=== PATIENT | male | born 1935 | race Caucasian/White ===

== ENCOUNTER 2016-10-10 19:33 | Inpatient (IN) | payer OTHER, MEDICARE ==
[~2016-10-10] VITALS: Ht 182.8 cm; Wt 94.4 kg
[~2016-10-10 19:33] MED LIST: ACCUNEB 0.0.63 MG/3 INH; ACCUNEB 0.1.25 MG/1 INH; ACYCLOVIR800 MG PO; ALBUTEROL; ALBUTEROL0.09 MG/A2 IH; ASPIRIN81 MG PO; AUGMENTIN 875875 MG PO; AVAPRO150 MG PO; AVELOX400 MG PO; B12,B-12,B 12500 MC1 PO; BACTRIM DS 8001 TA1 PO; BACTROBAN21 NS; BENICAR20 MG PO; BROMDAY 1.7 ML1.7 ML OP; BUMETANIDE2 MG PO; CEFUROXIME AXE250 MG PO; CIPRO500 MG PO; DOXYCYCLINE MO100 MG PO; DOXYCYCLINE100 M3 PO; DOXYCYCLINE100 MG PO; DULE1ARO1 INH; ELIQUIS5 M1 PO; FAMOTIDINE40 MG PO; FLONASE 0.05% 121 EA NAS; HYDROCODONE BIT1 T11 PO; K-DUR 1010 MEQ PO; LASIX20 MG PO; LEVAQUIN500 M1 PO; LEVAQUIN750 M1 PO; LEVOFLOXACIN500 MG PO; METOPROLOL SUCC25 M2 PO; METOPROLOL50 MG PO; NORVASC10 MG PO; PERCOCET 325 MG1 TA2 PO; PLAVIX75 MG PO; PRED FORTE 10 M10 ML OP; PREDNISONE10 MG PO; PROAIR HFA8.5 GM INH; ROBITUSSIN AC 110 ML PO; SINGULAIR10 MG PO; SPIRIVA18 MCG IH; SYMBICORT1 AE1 IH; SYMBICORT1 AER IH; VICODIN 5-3001 EACH PO; VITAMIN B12 PO; XARE20MG PO; ZITHROMAX Z PA250 MG PO; ZITHROMAX250 MG PO; ZYMAXID; [UNRECOGNIZED DRUG - OTHER] PO
[2016-10-10 19:39] VITALS: BP 125/88
[2016-10-10] MEDS ORDERED: ACETAMINOPHEN-O1 TAB PO (19:40)
[2016-10-10] MEDS ORDERED: DOXYCYCLINE100 M3 PO (19:40)
[2016-10-10 20:12] LABS: BASO % 0.1 % (0.0-1.0); EOS # 0.1 10*3/uL (0.0-0.4); EOS % 0.9 % (1.0-4.0); HEMATOCRIT 46.3 % (42.0-52.0); HEMOGLOBIN 15.7 g/dl (14.0-18.0); IG # 0.1 10*3/uL (0.0-0.1); LYMPH # 1.9 10*3/uL (1.3-4.4); LYMPH % 18.2 % (27.0-41.0); MEAN CELL VOLUME 87.7 fl (80.0-94.0); MEAN CORPUSCULAR HGB 29.7 pg (27.0-31.0); MEAN CORPUSCULAR HGB CONC 33.9 g/dl (33.0-37.0); MEAN PLATELET VOLUME 9.6 fl (9.6-12.3); MONO % 9.8 % (3.0-9.0); NEUT # 7.4 10*3/uL (2.3-7.9); NEUT % 69.7 % (47.0-73.0); PLATELET COUNT AUTOMATED 248 10*3/uL (130-400); RED BLOOD COUNT 5.28 10*6/uL (4.50-5.90); RED CELL DISTRI WIDTH 13.6 % (0-14.5); WHITE BLOOD COUNT 10.6 10*3/uL (4.8-10.8)
[2016-10-10 20:30] LABS: ALKALINE PHOSPHATASE 58 U/L (45-117); BILIRUBIN, TOTAL 0.5 mg/dl (0.2-1.0); BUN 18 mg/dl (7-24); CARBON DIOXIDE 27 mmol/L (21-32); CHLORIDE 102 mmol/L (98-107); EST GLOM FILT AFRICAN AMERICAN > 60 ml/min; GLUCOSE 68 mg/dL (65-99); MAGNESIUM 2.2 mg/dL (1.5-2.1); POTASSIUM 4.2 mmol/L (3.5-5.1); SGOT/AST 10 IU/L (3-35); SGPT/ALT 14 U/L (12-78); SODIUM 138 mmol/L (136-145); TOTAL PROTEIN 6.8 gm/dL (6.4-8.2)
[2016-10-10 20:36] LABS: TROPONIN I < 0.015 ng/ml (<0.045)
[2016-10-10 21:11] VITALS: BP 118/64
[2016-10-10 21:40] VITALS: BP 172/89
[2016-10-10 22:08] LABS: LA>2 REFLEX 2 HR DRAW NOW
[2016-10-10 22:28] LABS: LA>2 RFLX FOLLOW UP AT 2 HRS 2.5 mmol/L (0.4-2.0)
[2016-10-11] VITALS: BP 132/71
[2016-10-11 00:19] LABS: LA>2 REFLEX 4 HR DRAW NOW
[2016-10-11 03:55] LABS: LA>2 REFLEX 2 HR DRAW NOW
[2016-10-11 04:04] LABS: IG # 0.1 10*3/uL (0.0-0.1); LYMPH # 0.8 10*3/uL (1.3-4.4); MEAN CELL VOLUME 86.7 fl (80.0-94.0); MEAN CORPUSCULAR HGB 29.6 pg (27.0-31.0); MEAN CORPUSCULAR HGB CONC 34.1 g/dl (33.0-37.0); MEAN PLATELET VOLUME 9.1 fl (9.6-12.3); MONO # 0.1 10*3/uL (0.1-1.0); MONO % 1.2 % (3.0-9.0); NEUT # 6.6 10*3/uL (2.3-7.9); PLATELET COUNT AUTOMATED 215 10*3/uL (130-400); RED BLOOD COUNT 4.73 10*6/uL (4.50-5.90); RED CELL DISTRI WIDTH 13.3 % (0-14.5); WHITE BLOOD COUNT 7.5 10*3/uL (4.8-10.8)
[2016-10-11 04:11] LABS: LA>2 RFLX FOLLOW UP AT 2 HRS 2.2 mmol/L (0.4-2.0)
[2016-10-11 04:17] LABS: BUN 15 mg/dl (7-24); CARBON DIOXIDE 25 mmol/L (21-32); CHLORIDE 105 mmol/L (98-107); EST GLOM FILT AFRICAN AMERICAN > 60 ml/min; GLUCOSE 147 mg/dL (65-99); MAGNESIUM 2.2 mg/dL (1.5-2.1); POTASSIUM 4.2 mmol/L (3.5-5.1); SODIUM 140 mmol/L (136-145)
[2016-10-11 04:21] LABS: CHOLESTEROL 102 mg/dL (<200); FREE T4 1.51 ng/dl (0.76-1.46); HDL CHOLESTEROL 54 mg/dl (40-60); LDL CHOLESTEROL 42 mg/dL (9-159); PHOSPHOROUS 2.2 mg/dL (2.5-4.9); TRIGLYCERIDES 32 mg/dl (<150); VLDL CHOLESTEROL 6 mg/dL (6-40)
[2016-10-11 04:26] LABS: HEMOGLOBIN A1c 6.3 % (4.8-5.6)
[2016-10-11 04:27] LABS: THYROID STIM HORMONE (HS) 0.363 uIU/ml (0.358-4.75)
[2016-10-11 06:02] LABS: LA>2 REFLEX 4 HR DRAW NOW
[2016-10-11 07:36] LABS: VITAMIN D, 25-HYDROXY 28.5 ng/mL (30-100)
[2016-10-11 07:37] LABS: FOLIC ACID 7.37 ng/mL (>5.38)
[2016-10-11 08:00] VITALS: BP 160/82
[2016-10-11 10:49] LABS: LA>2 REFLEX 2 HR DRAW NOW
[2016-10-11 11:05] LABS: LA>2 RFLX FOLLOW UP AT 2 HRS 2.9 mmol/L (0.4-2.0)
[2016-10-11 11:56] VITALS: BP 133/58
[2016-10-11 12:57] LABS: LA>2 REFLEX 4 HR DRAW NOW
[2016-10-11 16:00] VITALS: BP 156/88
[2016-10-11 17:55] LABS: LA>2 REFLEX 2 HR DRAW NOW
[2016-10-11 18:17] LABS: LA>2 RFLX FOLLOW UP AT 2 HRS 2.5 mmol/L (0.4-2.0)
[2016-10-11 20:00] VITALS: BP 140/70
[2016-10-11 20:04] LABS: LA>2 REFLEX 4 HR DRAW NOW
[2016-10-11 23:47] LABS: LA>2 REFLEX 2 HR DRAW NOW
[2016-10-12] VITALS: BP 137/79
[2016-10-12 00:19] LABS: LA>2 RFLX FOLLOW UP AT 2 HRS 2.7 mmol/L (0.4-2.0)
[2016-10-12 02:02] LABS: LA>2 REFLEX 4 HR DRAW NOW
[2016-10-12 06:47] LABS: BASO % 0.1 % (0.0-1.0); HEMATOCRIT 40.3 % (42.0-52.0); HEMOGLOBIN 13.5 g/dl (14.0-18.0); IG # 0.2 10*3/uL (0.0-0.1); LYMPH % 7.3 % (27.0-41.0); MEAN CELL VOLUME 88.6 fl (80.0-94.0); MEAN CORPUSCULAR HGB 29.7 pg (27.0-31.0); MEAN CORPUSCULAR HGB CONC 33.5 g/dl (33.0-37.0); MEAN PLATELET VOLUME 9.2 fl (9.6-12.3); MONO # 0.3 10*3/uL (0.1-1.0); MONO % 2.2 % (3.0-9.0); NEUT # 12.2 10*3/uL (2.3-7.9); NEUT % 89.2 % (47.0-73.0); PLATELET COUNT AUTOMATED 264 10*3/uL (130-400); RED BLOOD COUNT 4.55 10*6/uL (4.50-5.90); RED CELL DISTRI WIDTH 13.6 % (0-14.5); WHITE BLOOD COUNT 13.6 10*3/uL (4.8-10.8)
[2016-10-12 07:16] LABS: BUN 17 mg/dl (7-24); CARBON DIOXIDE 24 mmol/L (21-32); CHLORIDE 104 mmol/L (98-107); EST GLOM FILT AFRICAN AMERICAN > 60 ml/min; GLUCOSE 168 mg/dL (65-99); POTASSIUM 4.2 mmol/L (3.5-5.1); SODIUM 139 mmol/L (136-145)
[2016-10-12 08:00] VITALS: BP 152/74
[2016-10-12 12:00] VITALS: BP 140/79
[2016-10-12 16:00] VITALS: BP 129/75
[2016-10-12] MEDS ORDERED: PREDNISONE10 MG PO (18:13)
[2016-10-12] MEDS ORDERED: DOXYCYCLINE100 M3 PO (18:13)
[2016-10-12] MEDS ORDERED: ACCUNEB 0.1.25 MG/1 NEB (18:13)
[2016-10-13 14:07] LABS: ORGANISM ID Not indicated. (.); SPECIMEN SOURCE Urine (.); STREPTOCOCCUS PNEUMONIAE AG Negative (Negative)
== END 2016-10-12 18:26 | disposition home or self-care (01) | DRG 871 ==
LOC: ED 19:33 → EDHOLD 20:49 → 4E 20:49
PROVIDERS: Internal Medicine; Internal Medicine Hospice and Palliative Medicine; Registered Nurse; Student in an Organized Health Care Education/Training Program
DX: A41.9 Sepsis, unspecified organism (principal); J18.9 Pneumonia, unspecified organism; E44.0 Moderate protein-calorie malnutrition; J96.10 Chronic respiratory failure, unspecified whether with hypoxia or hypercapnia; I11.0 Hypertensive heart disease with heart failure; D68.59 Other primary thrombophilia; I50.32 Chronic diastolic (congestive) heart failure; I48.1 Persistent atrial fibrillation; J44.1 Chronic obstructive pulmonary disease with (acute) exacerbation; J44.0 Chronic obstructive pulmonary disease with (acute) lower respiratory infection; R65.20 Severe sepsis without septic shock; K21.9 Gastro-esophageal reflux disease without esophagitis; D72.810 Lymphocytopenia; E83.41 Hypermagnesemia; E83.39 Other disorders of phosphorus metabolism; M15.9 Polyosteoarthritis, unspecified; Z86.73 Personal history of transient ischemic attack (TIA), and cerebral infarction without residual deficits; Z98.49 Cataract extraction status, unspecified eye; Z87.891 Personal history of nicotine dependence; Z80.1 Family history of malignant neoplasm of trachea, bronchus and lung; Z83.6 Family history of other diseases of the respiratory system; Z99.81 Dependence on supplemental oxygen; Z88.1 Allergy status to other antibiotic agents; Z79.899 Other long term (current) drug therapy; Z68.28 Body mass index [BMI] 28.0-28.9, adult

== ENCOUNTER 2016-11-04 22:48 | Emergency (ER) | payer OTHER, MEDICARE ==
[~2016-11-04] VITALS: Ht 182.8 cm; Wt 95.3 kg
[~2016-11-04 22:48] MED LIST changes: +ACCUNEB 0.1.25 MG/1 NEB; +ACETAMINOPHEN-O1 TAB PO
[2016-11-04] MEDS ORDERED: CLINDAMYCIN HC300 MG PO (23:20)
== END 2016-11-04 23:41 | disposition home or self-care (01) ==
LOC: ED 22:48
DX: K11.1 Hypertrophy of salivary gland (principal); Z88.1 Allergy status to other antibiotic agents; Z87.891 Personal history of nicotine dependence

== ENCOUNTER 2017-07-15 17:21 | Inpatient (IN) | payer OTHER, MEDICARE ==
[~2017-07-15] VITALS: Ht 182.8 cm; Wt 93.5 kg
--- NOTE | ~2017-07-15 | CON ---
[place], [place] REPORT OF CONSULTATION NAME: SONIYA HUSSEIN [facility] #: [id number] UNIT #: [id number] ROOM: 531 DOCTOR: MANUEL BAKER MD BIRTHDATE: [birth year] DOS: 07/16/2017 CONSULTATION REQUESTED BY: Hospitalist service. REASON FOR CONSULTATION: Assessment of ongoing acute respiratory complaints with shortness of breath and possibility of pneumonia. The consultation was requested by Roseline Burkett, nurse practitioner. HISTORY OF PRESENT ILLNESS: This is an 82-year-old male patient who has been admitted to the hospital under the care of the nurse practitioner 07/15/2017. The patient reported having symptoms of increased shortness of breath, which has occurred in the last few days, noted with significant worsening. The symptoms were noted significantly worse last Sunday morning, he came into the Emergency Room for further assessment. He was also noted with symptoms of coughing and producing a small to moderate amount of thick green sputum expectoration at that time. He has not been noted with any symptoms of chest pain or hemoptysis. The patient denies symptoms of wheezing at the present time. He has been admitted to the hospital for further medical management for acute pneumonia in the left lower lobe described on the chest x-ray and also elevation of the white cell count. REVIEW OF SYSTEMS: CONSTITUTIONAL: Fatigue and tiredness noted without any symptoms of fever or chills. EYES: Denies any burning, redness, or tenderness. EARS, NOSE, AND THROAT SYMPTOMS: No sore throat, hoarseness, otalgia, postnasal drainage or epistaxis. CARDIOVASCULAR: Denies anginal pain, edema, or pain of the lower extremity. GASTROINTESTINAL: Denied dysphagia, nausea, vomiting, diarrhea, abdominal pain, hematemesis, melena, or hematochezia. MUSCULOSKELETAL: Denies any acute joint deformities or pain. SKIN: Denies lesions or rashes. CENTRAL NERVOUS SYSTEM: Denies dizziness, headache, diplopia, or syncopal episodes. Remaining systems were reviewed with the patient, they were noted all negative. PAST MEDICAL HISTORY: 1. The patient was noted with history of centrilobular emphysema. 2. Atrial fibrillation. 3. Hyponatremia. 4. History of pancreatitis. 5. History of transient ischemic attack. 6. Essential hypertension. 7. Past history of bacterial pneumonia. 8. History of uncomplicated severe persistent bronchial asthma. 9. History of allergic rhinitis. PAST SURGICAL HISTORY: 1. Cataract extraction with lens implantation. [place], [place] REPORT OF CONSULTATION NAME: SONIYA HUSSEIN UNIT #: [id number] ROOM: 531 DOCTOR: DAMIAN ZULETA MD,MANUEL BIRTHDATE: [birth year] 2. Hemorrhoidectomy. 3. I and D of an abscess of the skin. 4. Right rotator cuff surgery. 5. Therapeutic bronchoscopy in 2014. SOCIAL HISTORY: The patient is , has 5 children. He lives at home. 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 Smoking started when he was 17 years old, smoked a pack of cigarettes per day until 1988. There was no history of any alcohol use or any illicit drug use. FAMILY HISTORY: The patient was noted with father at age 7070 years old, complication related to the black lung. Mother at age of 7575 years old, complication related to the lung cancer. MEDICATIONS: The current medication administered noted for use of DuoNeb, potassium chloride, famotidine, metoprolol tartrate, Bumex, Dulera, Eliquis, Zithromax and IV Rocephin. DRUG ALLERGIES: Noted as allergy to ADVAIR and LEVAQUIN. PHYSICAL EXAMINATION: GENERAL: An 82-year-old male who has been currently noted to be awake and alert without any acute distress at this time. Height of 6 feet, weight of 206 pounds, BMI 27.9. VITAL SIGNS: Reported as normal temperature as reviewed. Respiratory rate of the patient ranged between 18-14, heart rate of 68-70, and blood pressure 142/74-135/62. HEENT: Examination shows head was atraumatic. Eyes nonicterus. NECK: Supple. CARDIOVASCULAR: S1, S2 audible. LUNGS: The patient was noted with moderate decreased breath sounds bilaterally. Scattered crackles of the lung was noted. ABDOMEN: Soft, nontender. Bowel sounds are present. Abdomen noted moderately obese. EXTREMITIES: The patient was noted without any edema, clubbing or cyanosis. SKIN: No visible lesions or rashes. CENTRAL NERVOUS SYSTEM: Cranial nerves 2-12 intact without any focal deficit. LABORATORY DATA: PT/PTT on admission, INR 1.2, PTT normal on 07/15/2017 admission. CBC on admission 07/15/2017, WBC count 15.8, hemoglobin 13.6 and hematocrit 39.7, platelet count was normal. CMP of the patient on admission 07/15/2017 normal BUN and creatinine. Sodium 132. Albumin was noted as 3.0. ALT of 11. The troponin for the patient noted as normal yesterday and this morning. CMP of the patient on 07/16/2017 noted normal BUN and creatinine. Potassium 3.2, sodium 134. The CBC of patient 07/16/2017, WBC count was normal, hemoglobin 11.9, hematocrit 34.9, and platelet count was normal. The chest x-ray of the patient that was done was personally reviewed, shows patchy infiltration noted with consolidation in the left upper lobe in mid portion of the lung. The remaining lungs were noted clear. Mammillation of the right hemidiaphragm noted as normal variation for the patient. There was no lateral [place], [place] REPORT OF CONSULTATION NAME: SONIYA HUSSEIN UNIT #: [id number] ROOM: 531 DOCTOR: MANUEL BAKER MD BIRTHDATE: [birth year] view available. IMPRESSION: 1. The patient who has been currently admitted to the hospital noted with finding consistent with acute pneumonia very likely in the left upper lobe. The pneumonia would be considered non-aspiration for the patient with typical and atypical etiology. 2. The patient with chronic obstructive pulmonary disease history without any evidence of acute exacerbation at the present time. 3. History of essential hypertension. 4. Chronic anticoagulation as well. 5. History of uncomplicated severe persistent bronchial asthma noted stable without any acute exacerbation as well. PLAN OF MANAGEMENT: Order the sputum for Gram stain and culture. Continue bronchodilators and other medications as ordered for COPD and bronchial asthma management. The urine for legionella antigen and strep pneumo antigen will be obtained. Additional treatment changes will be done for the patient based on the progression of the illness. Repeat chest x-ray in the next couple of days to reassess the progression of the pneumonia with a PA lateral view. The chest x-ray of the patient will be done in the next couple of days. Continuation of the bronchodilators. Additional treatment changes to be made for the patient based on the progression of the illness. Usual medical management. Continue abstinence from the tobacco use as previously done by the patient. MANUEL SALGADO MD CM:CONSTR:REPORT OF CONSULTATION 1501 07/16/17 2354 interface
--- NOTE | ~2017-07-15 | PR ---
[place], [place] PROGRESS NOTE [id number] UNIT #: [id number] ROOM: 531 DOCTOR: MANUEL BAKER MD BIRTHDATE: [birth year] DOS: 07/17/2017 PULMONARY FOLLOWUP SUBJECTIVE: He has been noted with significant reduction of the cough but the patient has symptoms of shortness of breath. There was no wheezing described at this time, there were symptoms of chest pain reported. OBJECTIVE: VITAL SIGNS: Normal temperature to 99.4 degree Fahrenheit, respiratory rate 18 this morning, heart rate 81, blood pressure and 136/80. Pulse oxygen saturation on room air was 99% saturation recorded. HEENT: No acute change. NECK: Supple. Head was atraumatic. Eyes nonicterus. CARDIOVASCULAR: S1, S2 audible. LUNGS: Without any crackles; wheezing noted in the middle lower portion of the lung. ABDOMEN: Soft and nontender. LABORATORY DATA: Cultures of the sputum for patient from yesterday noted normal suzi, preliminary final culture results were pending. Gram stain many white blood cells with few epithelial cells, few gram-positive cocci in pairs and chains and rare gram-negative bacilli. IMPRESSION: The patient with resolving acute exacerbation of chronic obstructive pulmonary disease, acute tracheobronchitis, in the last 24 hours, the patient was noted with significant reduction and improvement in the respiratory symptoms. Small pneumonia in the left upper lobe as well. PLAN OF TREATMENT: The patient could be discharged home on oral antibiotic of Levaquin. Continuation of the bronchodilators and other treatment plan and management as previously ordered. Outpatient assessment of the patient will be recommended postdischarge to document the resolution of the current pulmonary infiltration in the left upper lobe. [place], [place] PROGRESS NOTE NAME: SONIYA HUSSEIN UNIT #: [id number] ROOM: 531 DOCTOR: MANUEL BAKER MD BIRTHDATE: [birth year] MANUEL SALGADO MD CM:PNTRANS [id number] MANUEL ZULETA MD 01/09/18 2311 interface
[~2017-07-15 17:21] MED LIST changes: +CLINDAMYCIN HC300 MG PO
[2017-07-15 18:00] VITALS: BP 142/74
[2017-07-15 18:14] LABS: BASO % 0.2 % (0.0-1.0); EOS % 0.1 % (1.0-4.0); HEMATOCRIT 39.7 % (42.0-52.0); HEMOGLOBIN 13.6 g/dl (14.0-18.0); LYMPH # 1.4 10*3/uL (1.3-4.4); LYMPH % 8.7 % (27.0-41.0); MEAN CELL VOLUME 90.6 fl (80.0-94.0); MEAN CORPUSCULAR HGB 31.1 pg (27.0-31.0); MEAN CORPUSCULAR HGB CONC 34.3 g/dl (33.0-37.0); MEAN PLATELET VOLUME 9.4 fl (9.6-12.3); MONO # 1.1 10*3/uL (0.1-1.0); MONO % 6.8 % (3.0-9.0); NEUT # 13.3 10*3/uL (2.3-7.9); NEUT % 83.7 % (47.0-73.0); PLATELET COUNT AUTOMATED 202 10*3/uL (130-400); RED BLOOD COUNT 4.38 10*6/uL (4.50-5.90); RED CELL DISTRI WIDTH 13.5 % (0-14.5); WHITE BLOOD COUNT 15.8 10*3/uL (4.8-10.8)
[2017-07-15 18:28] LABS: ACT PARTIAL THROMBO TIME 30.2 SECONDS (20.8-31.5); INTERNATIONAL NORM RATIO 1.2 (2.0-3.5)
[2017-07-15 18:31] LABS: ALKALINE PHOSPHATASE 55 U/L (45-117); BUN 14 mg/dl (7-24); CHLORIDE 94 mmol/L (98-107); CREATININE 1.11 mg/dL (0.70-1.30); POTASSIUM 3.6 mmol/L (3.5-5.1); SGOT/AST 13 IU/L (3-35); SGPT/ALT 11 U/L (12-78); SODIUM 132 mmol/L (136-145)
[2017-07-15 18:32] LABS: TROPONIN I < 0.015 ng/ml (<0.045)
[2017-07-15 19:19] VITALS: BP 134/65
[2017-07-15 19:37] VITALS: BP 107/47
[2017-07-15 20:28] VITALS: BP 130/64
[2017-07-15 20:30] VITALS: BP 130/64
[2017-07-16] VITALS: BP 131/63
[2017-07-16 04:00] VITALS: BP 129/82
[2017-07-16 05:15] LABS: ALBUMIN 2.7 gm/dl (3.1-4.5); ALKALINE PHOSPHATASE 47 U/L (45-117); BUN 15 mg/dl (7-24); CHLORIDE 96 mmol/L (98-107); CREATININE 0.95 mg/dL (0.70-1.30); FREE T4 1.56 ng/dl (0.76-1.46); POTASSIUM 3.2 mmol/L (3.5-5.1); SGOT/AST 13 IU/L (3-35); SGPT/ALT 9 U/L (12-78); SODIUM 134 mmol/L (136-145); TOTAL PROTEIN 6.6 gm/dL (6.4-8.2)
[2017-07-16 05:54] LABS: BASO % 0.4 % (0.0-1.0); EOS # 0.1 10*3/uL (0.0-0.4); EOS % 1.3 % (1.0-4.0); HEMATOCRIT 34.9 % (42.0-52.0); HEMOGLOBIN 11.9 g/dl (14.0-18.0); LYMPH # 1.5 10*3/uL (1.3-4.4); LYMPH % 15.9 % (27.0-41.0); MEAN CELL VOLUME 90.4 fl (80.0-94.0); MEAN CORPUSCULAR HGB 30.8 pg (27.0-31.0); MEAN CORPUSCULAR HGB CONC 34.1 g/dl (33.0-37.0); MEAN PLATELET VOLUME 9.9 fl (9.6-12.3); MONO # 0.9 10*3/uL (0.1-1.0); MONO % 9.5 % (3.0-9.0); NEUT % 72.6 % (47.0-73.0); PLATELET COUNT AUTOMATED 194 10*3/uL (130-400); RED BLOOD COUNT 3.86 10*6/uL (4.50-5.90); RED CELL DISTRI WIDTH 13.3 % (0-14.5); WHITE BLOOD COUNT 9.6 10*3/uL (4.8-10.8)
[2017-07-16 06:45] LABS: VITAMIN D, 25-HYDROXY 20.6 ng/mL (30-100)
[2017-07-16 08:00] VITALS: BP 124/58
[2017-07-16 12:00] VITALS: BP 135/62
[2017-07-16 16:00] VITALS: BP 137/68
[2017-07-16 20:00] VITALS: BP 123/70
[2017-07-17] VITALS: BP 109/52
[2017-07-17 06:34] LABS: BASO # 0.1 10*3/uL (0.0-0.1); BASO % 0.5 % (0.0-1.0); EOS # 0.2 10*3/uL (0.0-0.4); EOS % 2.1 % (1.0-4.0); HEMATOCRIT 36.8 % (42.0-52.0); HEMOGLOBIN 12.3 g/dl (14.0-18.0); LYMPH # 1.1 10*3/uL (1.3-4.4); LYMPH % 11.5 % (27.0-41.0); MEAN CELL VOLUME 93.2 fl (80.0-94.0); MEAN CORPUSCULAR HGB 31.1 pg (27.0-31.0); MEAN CORPUSCULAR HGB CONC 33.4 g/dl (33.0-37.0); MEAN PLATELET VOLUME 9.6 fl (9.6-12.3); MONO # 1.1 10*3/uL (0.1-1.0); MONO % 11.8 % (3.0-9.0); NEUT # 6.9 10*3/uL (2.3-7.9); NEUT % 73.6 % (47.0-73.0); PLATELET COUNT AUTOMATED 200 10*3/uL (130-400); RED BLOOD COUNT 3.95 10*6/uL (4.50-5.90); RED CELL DISTRI WIDTH 13.2 % (0-14.5); WHITE BLOOD COUNT 9.4 10*3/uL (4.8-10.8)
[2017-07-17 06:55] LABS: ALBUMIN 2.6 gm/dl (3.1-4.5); ALKALINE PHOSPHATASE 48 U/L (45-117); BUN 17 mg/dl (7-24); CHLORIDE 99 mmol/L (98-107); CREATININE 0.85 mg/dL (0.70-1.30); SGOT/AST 11 IU/L (3-35); SGPT/ALT 13 U/L (12-78); SODIUM 137 mmol/L (136-145); TOTAL PROTEIN 6.7 gm/dL (6.4-8.2)
[2017-07-17 07:02] LABS: POTASSIUM 4.2 mmol/L (3.5-5.1)
[2017-07-17 08:00] VITALS: BP 136/80
[2017-07-17] MEDS ORDERED: ZITHROMAX500 MG PO (10:23)
[2017-07-17] MEDS ORDERED: Vitamin D PO (10:23)
[2017-07-17] MEDS ORDERED: METOPROLOL SUCC25 M2 PO (10:24)
[2017-07-17] MEDS ORDERED: K-TAB20 MEQ PO (10:38)
[2017-07-17 12:00] VITALS: BP 138/62
[2017-07-19 16:11] LABS: LEGIONELLA URINARY ANTIGEN Negative (Negative)
== END 2017-07-17 15:31 | disposition home or self-care (01) | DRG 178 ==
LOC: ED 17:21 → 5E 19:40 → EDHOLD 19:40 → 5E 19:45
PROVIDERS: Internal Medicine; Internal Medicine Critical Care Medicine; Registered Nurse
DX: J15.6 Pneumonia due to other Gram-negative bacteria (principal); J44.0 Chronic obstructive pulmonary disease with (acute) lower respiratory infection; I47.2 Ventricular tachycardia; E44.0 Moderate protein-calorie malnutrition; J96.10 Chronic respiratory failure, unspecified whether with hypoxia or hypercapnia; I48.1 Persistent atrial fibrillation; E87.1 Hypo-osmolality and hyponatremia; J44.1 Chronic obstructive pulmonary disease with (acute) exacerbation; E83.41 Hypermagnesemia; E83.51 Hypocalcemia; D72.829 Elevated white blood cell count, unspecified; E87.6 Hypokalemia; E55.9 Vitamin D deficiency, unspecified; E53.9 Vitamin B deficiency, unspecified; K21.9 Gastro-esophageal reflux disease without esophagitis; M19.90 Unspecified osteoarthritis, unspecified site; J20.9 Acute bronchitis, unspecified; J45.50 Severe persistent asthma, uncomplicated; J18.1 Lobar pneumonia, unspecified organism; I11.0 Hypertensive heart disease with heart failure; I50.9 Heart failure, unspecified; Z99.81 Dependence on supplemental oxygen; Z79.01 Long term (current) use of anticoagulants; Z88.1 Allergy status to other antibiotic agents; Z88.8 Allergy status to other drugs, medicaments and biological substances; Z79.899 Other long term (current) drug therapy; Z86.73 Personal history of transient ischemic attack (TIA), and cerebral infarction without residual deficits; Z98.42 Cataract extraction status, left eye; Z98.41 Cataract extraction status, right eye; Z83.6 Family history of other diseases of the respiratory system; Z80.1 Family history of malignant neoplasm of trachea, bronchus and lung; Z88.3 Allergy status to other anti-infective agents; Z68.27 Body mass index [BMI] 27.0-27.9, adult

== ENCOUNTER 2017-08-18 12:46 | Emergency (ER) | payer OTHER, MEDICARE ==
[~2017-08-18] VITALS: Ht 182.8 cm; Wt 93.0 kg
[~2017-08-18 12:46] MED LIST changes: +K-TAB20 MEQ PO; +Vitamin D PO; +ZITHROMAX500 MG PO
== END 2017-08-18 16:27 | disposition home or self-care (01) ==
LOC: ED 12:46
DX: S20.212A Contusion of left front wall of thorax, initial encounter (principal); K21.9 Gastro-esophageal reflux disease without esophagitis; J44.1 Chronic obstructive pulmonary disease with (acute) exacerbation; I11.0 Hypertensive heart disease with heart failure; I50.9 Heart failure, unspecified; J96.10 Chronic respiratory failure, unspecified whether with hypoxia or hypercapnia; I48.91 Unspecified atrial fibrillation; W00.0XXA Fall on same level due to ice and snow, initial encounter; Y93.89 Activity, other specified; Y92.89 Other specified places as the place of occurrence of the external cause; Y99.8 Other external cause status; Z88.1 Allergy status to other antibiotic agents

== ENCOUNTER → 2017-11-06 | Outpatient (CLI) | payer OTHER, MEDICARE | END | disposition home or self-care (01) | LOC: CT 13:35 | DX: R93.8 Abnormal findings on diagnostic imaging of other specified body structures (principal) ==

== ENCOUNTER 2018-07-11 17:15 | Emergency (ER) | payer MEDICARE, OTHER ==
[~2018-07-11] VITALS: Ht 182.8 cm; Wt 90.7 kg
[2018-07-11] MEDS ORDERED: NORCO 5-325 TA1 EACH PO (19:34)
== END 2018-07-11 19:35 | disposition home or self-care (01) ==
LOC: ED 17:15
DX: S20.212A Contusion of left front wall of thorax, initial encounter (principal); Z88.8 Allergy status to other drugs, medicaments and biological substances; Z88.1 Allergy status to other antibiotic agents; Z79.899 Other long term (current) drug therapy; Z87.891 Personal history of nicotine dependence; W19.XXXA Unspecified fall, initial encounter; Y93.89 Activity, other specified; Y92.89 Other specified places as the place of occurrence of the external cause; Y99.8 Other external cause status

== ENCOUNTER 2019-03-05 19:59 | Emergency (ER) | payer MEDICARE, OTHER ==
[~2019-03-05] VITALS: Ht 182.8 cm; Wt 90.7 kg
[~2019-03-05 19:59] MED LIST changes: +NORCO 5-325 TA1 EACH PO
[2019-03-05 20:43] LABS: BASO % 0.5 % (0.0-1.0); EOS # 0.1 10*3/uL (0.0-0.4); EOS % 1.6 % (1.0-4.0); HEMATOCRIT 42.8 % (42.0-52.0); HEMOGLOBIN 13.9 g/dl (14.0-18.0); LYMPH # 1.3 10*3/uL (1.3-4.4); LYMPH % 16.5 % (27.0-41.0); MEAN CELL VOLUME 96.6 fl (80.0-94.0); MEAN CORPUSCULAR HGB 31.4 pg (27.0-31.0); MEAN CORPUSCULAR HGB CONC 32.5 g/dl (33.0-37.0); MEAN PLATELET VOLUME 9.3 fl (9.6-12.3); MONO # 0.7 10*3/uL (0.1-1.0); MONO % 8.6 % (3.0-9.0); NEUT # 5.8 10*3/uL (2.3-7.9); NEUT % 72.5 % (47.0-73.0); PLATELET COUNT AUTOMATED 208 10*3/uL (130-400); RED BLOOD COUNT 4.43 10*6/uL (4.50-5.90); RED CELL DISTRI WIDTH 13.2 % (0-14.5)
[2019-03-05 20:58] LABS: ALBUMIN 3.4 gm/dl (3.1-4.5); ALKALINE PHOSPHATASE 56 U/L (45-117); BUN 12 mg/dl (7-24); CHLORIDE 101 mmol/L (98-107); CREATININE 1.04 mg/dL (0.70-1.30); POTASSIUM 3.5 mmol/L (3.5-5.1); SGOT/AST 12 IU/L (3-35); SGPT/ALT 14 U/L (12-78); SODIUM 138 mmol/L (136-145); TOTAL PROTEIN 6.8 gm/dL (6.4-8.2); URIC ACID 7.3 mg/dL (3.5-7.2)
[2019-03-05] MEDS ORDERED: COLCHICINE0.6 M2 PO (21:13)
== END 2019-03-05 23:49 | disposition home or self-care (01) ==
LOC: ED 19:59
PROVIDERS: Physician Assistant
DX: M10.071 Idiopathic gout, right ankle and foot (principal); Z88.8 Allergy status to other drugs, medicaments and biological substances; Z88.1 Allergy status to other antibiotic agents; Z79.899 Other long term (current) drug therapy; Z87.891 Personal history of nicotine dependence

== ENCOUNTER → 2019-05-07 | Outpatient (CLI) | payer MEDICARE, OTHER ==
[~2019-05-07] MED LIST changes: +COLCHICINE0.6 M2 PO
== END | disposition home or self-care (01) ==
LOC: US 05:58
DX: J15.9 Unspecified bacterial pneumonia (principal); I70.213 Atherosclerosis of native arteries of extremities with intermittent claudication, bilateral legs; R07.89 Other chest pain; R20.0 Anesthesia of skin; R25.2 Cramp and spasm; J44.9 Chronic obstructive pulmonary disease, unspecified; J98.11 Atelectasis

== ENCOUNTER 2019-08-11 23:12 | Emergency (ER) | payer MEDICARE, OTHER ==
[~2019-08-11] VITALS: Wt 90.7 kg
[2019-08-12 00:02] LABS: HEMATOCRIT 45.4 % (42.0-52.0); HEMOGLOBIN 14.5 g/dl (14.0-18.0); MEAN CORPUSCULAR HGB CONC 31.9 g/dl (33.0-37.0); MEAN PLATELET VOLUME 9.7 fl (9.6-12.3); PLATELET COUNT AUTOMATED 185 10*3/uL (130-400); RED BLOOD COUNT 4.83 10*6/uL (4.50-5.90); RED CELL DISTRI WIDTH 13.8 % (0-14.5); WHITE BLOOD COUNT 12.6 10*3/uL (4.8-10.8)
[2019-08-12 00:18] LABS: ALBUMIN 3.9 gm/dl (3.1-4.5); ALKALINE PHOSPHATASE 66 U/L (45-117); BUN 17 mg/dl (7-24); CHLORIDE 105 mmol/L (98-107); CREATININE 1.15 mg/dL (0.70-1.30); LIPASE 90 U/L (73-393); POTASSIUM 3.5 mmol/L (3.5-5.1); SGOT/AST 14 IU/L (3-35); SGPT/ALT 16 U/L (12-78); SODIUM 138 mmol/L (136-145); TOTAL PROTEIN 7.8 gm/dL (6.4-8.2)
[2019-08-12 00:36] LABS: BASOPHILS 1 % (0-1); PLATELET SUFFICIENCY NORMAL (NORMAL); TOTAL CELLS COUNTED 100 #CELLS
[2019-08-12 00:37] LABS: BURR CELLS FEW; OVALOCYTES FEW
== END 2019-08-12 01:09 | disposition short-term general hospital (02) ==
LOC: ED 23:12
PROVIDERS: Emergency Medicine
DX: K92.2 Gastrointestinal hemorrhage, unspecified (principal); J44.9 Chronic obstructive pulmonary disease, unspecified; I11.0 Hypertensive heart disease with heart failure; I50.9 Heart failure, unspecified; K21.9 Gastro-esophageal reflux disease without esophagitis; I48.91 Unspecified atrial fibrillation; M19.90 Unspecified osteoarthritis, unspecified site; Z88.8 Allergy status to other drugs, medicaments and biological substances; Z88.1 Allergy status to other antibiotic agents; Z79.899 Other long term (current) drug therapy; Z86.73 Personal history of transient ischemic attack (TIA), and cerebral infarction without residual deficits; Z98.61 Coronary angioplasty status; Z87.891 Personal history of nicotine dependence

== ENCOUNTER → 2019-08-18 | Outpatient (CLI) | payer MEDICARE, OTHER | END | disposition home or self-care (01) | LOC: CARD 10:30 | DX: I35.0 Nonrheumatic aortic (valve) stenosis (principal); I27.20 Pulmonary hypertension, unspecified ==

== ENCOUNTER → 2019-08-25 | Outpatient (CLI) | payer MEDICARE, OTHER ==
[~2019-08-25] MED LIST changes: +BAYER ASPIRIN C81 MG PO; +NEURONTIN300 MG PO
== END | disposition home or self-care (01) ==
LOC: RAD 15:46
DX: J44.1 Chronic obstructive pulmonary disease with (acute) exacerbation (principal); K92.2 Gastrointestinal hemorrhage, unspecified; R53.1 Weakness

== ENCOUNTER → 2019-09-04 | Outpatient (CLI) | payer MEDICARE, OTHER ==
[2019-09-04 11:01] LABS: BASO % 0.8 % (0.0-1.0); EOS # 0.3 10*3/uL (0.0-0.4); EOS % 5.6 % (1.0-4.0); HEMATOCRIT 32.7 % (42.0-52.0); HEMOGLOBIN 10.1 g/dl (14.0-18.0); LYMPH # 0.8 10*3/uL (1.3-4.4); LYMPH % 15.9 % (27.0-41.0); MEAN CELL VOLUME 90.1 fl (80.0-94.0); MEAN CORPUSCULAR HGB 27.8 pg (27.0-31.0); MEAN CORPUSCULAR HGB CONC 30.9 g/dl (33.0-37.0); MEAN PLATELET VOLUME 9.1 fl (9.6-12.3); MONO # 0.5 10*3/uL (0.1-1.0); MONO % 10.4 % (3.0-9.0); NEUT # 3.5 10*3/uL (2.3-7.9); NEUT % 66.9 % (47.0-73.0); PLATELET COUNT AUTOMATED 237 10*3/uL (130-400); RED BLOOD COUNT 3.63 10*6/uL (4.50-5.90); RED CELL DISTRI WIDTH 14.2 % (0-14.5); WHITE BLOOD COUNT 5.2 10*3/uL (4.8-10.8)
== END | disposition home or self-care (01) ==
LOC: LAB 10:47
PROVIDERS: Nurse Practitioner Family
DX: K92.2 Gastrointestinal hemorrhage, unspecified (principal)

== ENCOUNTER 2019-09-11 10:06 | Inpatient (IN) | payer MEDICARE, OTHER ==
[~2019-09-11] VITALS: Ht 185.4 cm; Wt 94.6 kg
[~2019-09-11 10:06] MED LIST changes: -BAYER ASPIRIN C81 MG PO; -NEURONTIN300 MG PO
[2019-09-11 10:31] VITALS: BP 136/70
[2019-09-11 10:33] LABS: HEMATOCRIT 34.6 % (42.0-52.0); HEMOGLOBIN 10.8 g/dl (14.0-18.0); MEAN CELL VOLUME 89.2 fl (80.0-94.0); MEAN CORPUSCULAR HGB 27.8 pg (27.0-31.0); MEAN CORPUSCULAR HGB CONC 31.2 g/dl (33.0-37.0); MEAN PLATELET VOLUME 9.4 fl (9.6-12.3); PLATELET COUNT AUTOMATED 266 10*3/uL (130-400); RED BLOOD COUNT 3.88 10*6/uL (4.50-5.90); RED CELL DISTRI WIDTH 14.7 % (0-14.5); WHITE BLOOD COUNT 14.1 10*3/uL (4.8-10.8)
[2019-09-11 10:50] LABS: ACT PARTIAL THROMBO TIME 30.3 SECONDS (20.0-32.1); INTERNATIONAL NORM RATIO 1.1 (2.0-3.5)
[2019-09-11 10:53] LABS: ALBUMIN 3.7 gm/dl (3.1-4.5); ALKALINE PHOSPHATASE 72 U/L (45-117); BUN 18 mg/dl (7-24); CHLORIDE 104 mmol/L (98-107); CREATININE 1.29 mg/dL (0.70-1.30); POTASSIUM 3.4 mmol/L (3.5-5.1); SGOT/AST 13 IU/L (3-35); SGPT/ALT 15 U/L (12-78); SODIUM 139 mmol/L (136-145); TOTAL PROTEIN 7.5 gm/dL (6.4-8.2)
[2019-09-11 11:02] LABS: TROPONIN I < 0.015 ng/ml (<0.045)
[2019-09-11 11:15] LABS: PLATELET SUFFICIENCY NORMAL (NORMAL); POLYCHROMASIA SLIGHT; TOTAL CELLS COUNTED 100 #CELLS
[2019-09-11 11:25] VITALS: BP 133/67
--- NOTE | 2019-09-11 11:39 | NUR ---
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
[2019-09-11 14:15] VITALS: BP 109/57
--- NOTE | 2019-09-11 14:15 | NUR ---
A 84, admitted to 4E, under the services of JUAN Brower DO with a diagnosis of PNA,SEPSIS. Chief complaint is SHORTNESS OF BREATH. Patient arrived via bed from ER. Monitor applied. Initial assessment completed. Vital signs taken and recorded. JUAN BROWER DO notified of admission to the unit. Orders received. See assessment for past medical history, medications and allergies. Patient and/or family oriented to unit. [facility] visitation policy reviewed. Clothing/patient valuable form completed. ANDRE VEGA
[2019-09-11] MEDS ORDERED: NEURONTIN300 MG PO (14:33)
[2019-09-11] MEDS ORDERED: BAYER ASPIRIN C81 MG PO (14:36)
--- NOTE | 2019-09-11 14:36 | NUR ---
MED REC COMPLETED AT BEDSIDE WITH HOME MED LIST AND MED CLAIM HX AT BEDSIDE.DR DHILLON ROUNDED AND SEEN PT AND IS [facility] HOME MEDS UP TO DATE.
[2019-09-11 15:57] VITALS: BP 124/74
[2019-09-11] MEDS ORDERED: PEPCID40 MG PO (17:20)
[2019-09-11] MEDS ORDERED: PROTONIX40 MG PO (17:22)
[2019-09-11 20:00] VITALS: BP 122/74
[2019-09-12] VITALS: BP 127/68
[2019-09-12 06:59] LABS: BASO # 0.1 10*3/uL (0.0-0.1); BASO % 0.3 % (0.0-1.0); EOS # 0.1 10*3/uL (0.0-0.4); EOS % 0.7 % (1.0-4.0); HEMATOCRIT 29.2 % (42.0-52.0); HEMOGLOBIN 8.9 g/dl (14.0-18.0); LYMPH # 0.9 10*3/uL (1.3-4.4); LYMPH % 5.1 % (27.0-41.0); MEAN CELL VOLUME 86.9 fl (80.0-94.0); MEAN CORPUSCULAR HGB 26.5 pg (27.0-31.0); MEAN CORPUSCULAR HGB CONC 30.5 g/dl (33.0-37.0); MEAN PLATELET VOLUME 9.7 fl (9.6-12.3); MONO % 5.4 % (3.0-9.0); NEUT # 16.1 10*3/uL (2.3-7.9); NEUT % 87.8 % (47.0-73.0); PLATELET COUNT AUTOMATED 197 10*3/uL (130-400); RED BLOOD COUNT 3.36 10*6/uL (4.50-5.90); RED CELL DISTRI WIDTH 15.1 % (0-14.5); WHITE BLOOD COUNT 18.3 10*3/uL (4.8-10.8)
[2019-09-12 07:30] LABS: BUN 20 mg/dl (7-24); CHLORIDE 106 mmol/L (98-107); CREATININE 1.24 mg/dL (0.70-1.30); PHOSPHOROUS 2.6 mg/dL (2.5-4.9); POTASSIUM 3.9 mmol/L (3.5-5.1); SODIUM 137 mmol/L (136-145)
[2019-09-12 07:50] LABS: VITAMIN D, 25-HYDROXY 43.7 ng/mL (30-100)
--- NOTE | 2019-09-12 09:00 | NUR ---
Undercover Operator in to talk to patient. Patient states lives at home with . There are 3 steps in the home. Physician: brandy finley Pharmacy: [facility] health services: none Patient's level of ADLs: INDEPENDENT Patient has working utilities: all working DME: home oxygen wears at night, nebulizer and cane from [facility] Follow-up physician's appointment after d/c: will be made by hospitalist nurse director upon discharge Does patient want to access PORTAL?: no Discharge plan discussed with patient, he lives at home , he states he is independent in adls and ambulation, he states he will return home when medically stable and denies any home needs, case management will follow. MINDA WILDER
[2019-09-12 12:00] VITALS: BP 124/62
[2019-09-12 16:00] VITALS: BP 118/99
--- NOTE | 2019-09-12 19:20 | NUR ---
REPORT RECEIVED FROM DAYLIGHT NURSE. PT LYING IN BED, AT BEDSIDE. O2 INTACT. VOICES NO COMPLAINTS AT THIS TIME. CALL LIGHT IN REACH
--- NOTE | 2019-09-12 19:50 | NUR ---
24 HR chart check completed.
[2019-09-12 20:00] VITALS: BP 128/61
[2019-09-13] VITALS: BP 122/54
[2019-09-13 06:33] LABS: BASO % 0.2 % (0.0-1.0); EOS # 0.1 10*3/uL (0.0-0.4); EOS % 0.7 % (1.0-4.0); HEMATOCRIT 28.2 % (42.0-52.0); HEMOGLOBIN 8.7 g/dl (14.0-18.0); LYMPH # 0.8 10*3/uL (1.3-4.4); LYMPH % 6.6 % (27.0-41.0); MEAN CELL VOLUME 86.5 fl (80.0-94.0); MEAN CORPUSCULAR HGB 26.7 pg (27.0-31.0); MEAN CORPUSCULAR HGB CONC 30.9 g/dl (33.0-37.0); MONO # 0.9 10*3/uL (0.1-1.0); MONO % 7.7 % (3.0-9.0); NEUT # 9.6 10*3/uL (2.3-7.9); NEUT % 84.5 % (47.0-73.0); PLATELET COUNT AUTOMATED 200 10*3/uL (130-400); RED BLOOD COUNT 3.26 10*6/uL (4.50-5.90); RED CELL DISTRI WIDTH 15.2 % (0-14.5); WHITE BLOOD COUNT 11.3 10*3/uL (4.8-10.8)
[2019-09-13 06:57] LABS: BUN 22 mg/dl (7-24); CHLORIDE 106 mmol/L (98-107); CREATININE 1.09 mg/dL (0.70-1.30); SODIUM 138 mmol/L (136-145)
[2019-09-13 08:00] VITALS: BP 120/60
--- NOTE | 2019-09-13 08:18 | NUR ---
PT RESTING IN BED. NO DISTRESS NOTED. WILL MONITOR
[2019-09-13 12:00] VITALS: BP 117/58
--- NOTE | 2019-09-13 13:58 | NUR ---
DR DE SANTIAGO CALLED AND NOTIFIED OF PT IN AFIB WITH FREQ PVCS NO NEW ORDERED RECIEVED
[2019-09-13 16:00] VITALS: BP 112/53
--- NOTE | 2019-09-13 19:25 | NUR ---
REPORT RECEIVED. PT WATCHING TV AT THIS TIME. VOICES NO COMPLAINTS, CALL LIGHT IN REACH
[2019-09-13 20:00] VITALS: BP 141/56
[2019-09-14] VITALS: BP 138/60
--- NOTE | 2019-09-14 | NUR ---
PT SLEEPING AT THIS TIME. O2 INTACT. NO S/S OF DISTRESS NOTED. PT CALL LIGHT IN REACH.
--- NOTE | 2019-09-14 04:00 | NUR ---
PT LYING IN BED AT THIS TIME CALL LIGHT IN REACH
--- NOTE | 2019-09-14 07:48 | NUR ---
PT RESTING IN BED/ NO DISTRESS NOTED/ SEE SHIFT ASSESSMENT WILL MONITOR
[2019-09-14 08:00] VITALS: BP 136/62
[2019-09-14] MEDS ORDERED: ZITHROMAX500 MG PO (09:29)
[2019-09-14] MEDS ORDERED: MUCINEX ER600 MG PO (09:29)
[2019-09-14] MEDS ORDERED: OMNICEF300 MG PO (09:29)
--- NOTE | 2019-09-14 11:31 | NUR ---
HOME O2 ASSESSMENT PERFORMED SPO2 ON ROOM AIR - 96%, HR - 86, BP - 130/54 SPO2 AMBULATING ON RA - 87% 2LNC APPLIED - SPO2 95% SPO2 AMUBLATING ON 2LNC - 96% SPO2 ON RA @ REST - 95%, HR - 85, BP - 158/58
[2019-09-14 12:00] VITALS: BP 134/65
--- NOTE | 2019-09-14 14:17 | NUR ---
Discharge instructions reviewed with patient/family. Patient receptive and verbalizes understanding. Follow-up care arranged. Written instructions given to patient/family. JUAN JOSE BAKER
== END 2019-09-14 14:40 | disposition home or self-care (01) | DRG 871 ==
LOC: ED 10:06 → EDHOLD 13:23 → 4E 13:23
PROVIDERS: Emergency Medicine; Internal Medicine; ADMIT Family Medicine
DX: A41.9 Sepsis, unspecified organism (principal); J15.6 Pneumonia due to other Gram-negative bacteria; J96.20 Acute and chronic respiratory failure, unspecified whether with hypoxia or hypercapnia; J44.1 Chronic obstructive pulmonary disease with (acute) exacerbation; J44.0 Chronic obstructive pulmonary disease with (acute) lower respiratory infection; I50.32 Chronic diastolic (congestive) heart failure; E87.6 Hypokalemia; R73.9 Hyperglycemia, unspecified; D64.9 Anemia, unspecified; I48.91 Unspecified atrial fibrillation; I11.0 Hypertensive heart disease with heart failure; K21.9 Gastro-esophageal reflux disease without esophagitis; Z99.81 Dependence on supplemental oxygen; Z79.01 Long term (current) use of anticoagulants; Z79.899 Other long term (current) drug therapy; Z88.1 Allergy status to other antibiotic agents; Z88.8 Allergy status to other drugs, medicaments and biological substances; Z86.73 Personal history of transient ischemic attack (TIA), and cerebral infarction without residual deficits; Z98.42 Cataract extraction status, left eye; Z98.41 Cataract extraction status, right eye; Z80.1 Family history of malignant neoplasm of trachea, bronchus and lung; Z79.82 Long term (current) use of aspirin

== ENCOUNTER 2019-09-17 12:31 | Emergency (ER) | payer MEDICARE, OTHER ==
[~2019-09-17] VITALS: Ht 182.8 cm; Wt 90.7 kg
[~2019-09-17 12:31] MED LIST changes: +BAYER ASPIRIN C81 MG PO; +MUCINEX ER600 MG PO; +NEURONTIN300 MG PO; +OMNICEF300 MG PO; +PEPCID40 MG PO; +PROTONIX40 MG PO
[2019-09-17] MEDS ORDERED: CLOPIDOGREL75 MG PO (13:04)
[2019-09-17 14:20] LABS: BASO # 0.1 10*3/uL (0.0-0.1); BASO % 0.6 % (0.0-1.0); EOS # 0.3 10*3/uL (0.0-0.4); EOS % 3.4 % (1.0-4.0); HEMOGLOBIN 9.8 g/dl (14.0-18.0); LYMPH # 0.6 10*3/uL (1.3-4.4); LYMPH % 7.3 % (27.0-41.0); MEAN CELL VOLUME 86.7 fl (80.0-94.0); MEAN CORPUSCULAR HGB 26.6 pg (27.0-31.0); MEAN CORPUSCULAR HGB CONC 30.6 g/dl (33.0-37.0); MEAN PLATELET VOLUME 9.6 fl (9.6-12.3); MONO # 0.8 10*3/uL (0.1-1.0); MONO % 9.7 % (3.0-9.0); NEUT # 6.2 10*3/uL (2.3-7.9); NEUT % 78.5 % (47.0-73.0); PLATELET COUNT AUTOMATED 284 10*3/uL (130-400); RED BLOOD COUNT 3.69 10*6/uL (4.50-5.90); RED CELL DISTRI WIDTH 15.2 % (0-14.5); WHITE BLOOD COUNT 7.9 10*3/uL (4.8-10.8)
[2019-09-17 14:30] LABS: INTERNATIONAL NORM RATIO 1.1 (2.0-3.5)
[2019-09-17 14:34] LABS: ALBUMIN 2.8 gm/dl (3.1-4.5); ALKALINE PHOSPHATASE 64 U/L (45-117); BUN 14 mg/dl (7-24); CHLORIDE 101 mmol/L (98-107); CREATININE 0.91 mg/dL (0.70-1.30); POTASSIUM 3.4 mmol/L (3.5-5.1); SGOT/AST 14 IU/L (3-35); SGPT/ALT 17 U/L (12-78); SODIUM 137 mmol/L (136-145)
[2019-09-17] MEDS ORDERED: KEFLEX500 M1 PO (16:27)
== END 2019-09-17 16:42 | disposition home or self-care (01) ==
LOC: ED 12:31
PROVIDERS: Internal Medicine
DX: L03.115 Cellulitis of right lower limb (principal); I48.91 Unspecified atrial fibrillation; I11.0 Hypertensive heart disease with heart failure; I50.9 Heart failure, unspecified; K21.9 Gastro-esophageal reflux disease without esophagitis; M10.9 Gout, unspecified; M19.90 Unspecified osteoarthritis, unspecified site; J44.9 Chronic obstructive pulmonary disease, unspecified; Z88.8 Allergy status to other drugs, medicaments and biological substances; Z79.899 Other long term (current) drug therapy; Z79.2 Long term (current) use of antibiotics; Z86.73 Personal history of transient ischemic attack (TIA), and cerebral infarction without residual deficits

== ENCOUNTER → 2019-09-18 | Outpatient (CLI) | payer MEDICARE, OTHER ==
[~2019-09-18] MED LIST changes: +CLOPIDOGREL75 MG PO; +KEFLEX500 M1 PO
== END | disposition home or self-care (01) ==
LOC: RAD 16:17
DX: M19.071 Primary osteoarthritis, right ankle and foot (principal); M79.671 Pain in right foot

== ENCOUNTER → 2019-12-09 | Outpatient (CLI) | payer OTHER, MEDICARE | END | disposition home or self-care (01) | LOC: CT 12:59 | DX: J43.9 Emphysema, unspecified (principal); R91.8 Other nonspecific abnormal finding of lung field; I51.7 Cardiomegaly ==

== ENCOUNTER → 2021-01-04 | Outpatient (CLI) | payer MEDICARE | END | disposition home or self-care (01) | LOC: CARD 11:33 | PROVIDERS: ATTEND Student in an Organized Health Care Education/Training Program | DX: I08.3 Combined rheumatic disorders of mitral, aortic and tricuspid valves (principal); I27.21 Secondary pulmonary arterial hypertension ==

== ENCOUNTER → 2021-06-27 | Outpatient (CLI) | payer MEDICARE | END | disposition home or self-care (01) | LOC: RAD 14:57 | PROVIDERS: ATTEND Nurse Practitioner Family | DX: J44.9 Chronic obstructive pulmonary disease, unspecified (principal); R09.81 Nasal congestion; R06.2 Wheezing ==

== ENCOUNTER → 2022-03-29 | Outpatient (CLI) | payer MEDICARE ==
[2022-03-29 08:42] LABS: BASO # 0.1 10*3/uL (0.0-0.1); BASO % 0.9 % (0.0-1.0); EOS # 0.2 10*3/uL (0.0-0.4); EOS % 3.6 % (1.0-4.0); HEMATOCRIT 42.4 % (42.0-52.0); LYMPH # 1.1 10*3/uL (1.3-4.4); LYMPH % 20.8 % (27.0-41.0); MEAN CELL VOLUME 98.4 fl (80.0-94.0); MEAN CORPUSCULAR HGB CONC 32.5 g/dl (33.0-37.0); MEAN PLATELET VOLUME 9.8 fl (9.6-12.3); MONO # 0.6 10*3/uL (0.1-1.0); MONO % 10.2 % (3.0-9.0); NEUT # 3.5 10*3/uL (2.3-7.9); NEUT % 64.1 % (47.0-73.0); PLATELET COUNT AUTOMATED 178 10*3/uL (130-400); RED BLOOD COUNT 4.31 10*6/uL (4.50-5.90); RED CELL DISTRI WIDTH 13.2 % (0-14.5); WHITE BLOOD COUNT 5.5 10*3/uL (4.8-10.8)
[2022-03-29 09:00] LABS: BUN 12 mg/dl (7-24); CHLORIDE 104 mmol/L (98-107); CHOLESTEROL 151 mg/dL (<200); CREATININE 1.02 mg/dL (0.70-1.30); POTASSIUM 3.7 mmol/L (3.5-5.1); SGOT/AST 12 IU/L (3-35); SGPT/ALT 14 U/L (12-78); SODIUM 139 mmol/L (136-145); TRIGLYCERIDES 54 mg/dl (<150)
[2022-03-29 09:02] LABS: ALKALINE PHOSPHATASE 75 U/L (45-117); LDL CHOLESTEROL 97 mg/dL (9-159); TOTAL PROTEIN 7.1 gm/dL (6.4-8.2)
== END | disposition home or self-care (01) ==
LOC: LAB 08:00
PROVIDERS: ATTEND Nurse Practitioner Family
DX: J44.1 Chronic obstructive pulmonary disease with (acute) exacerbation (principal); I10 Essential (primary) hypertension; G62.9 Polyneuropathy, unspecified; H91.90 Unspecified hearing loss, unspecified ear

== ENCOUNTER → 2022-11-06 | Outpatient (CLI) | payer MEDICARE | END | disposition home or self-care (01) | LOC: RESCLI 09:33 | PROVIDERS: ATTEND Student in an Organized Health Care Education/Training Program | DX: I48.19 Other persistent atrial fibrillation (principal); J44.1 Chronic obstructive pulmonary disease with (acute) exacerbation; E55.9 Vitamin D deficiency, unspecified; R26.2 Difficulty in walking, not elsewhere classified; K21.9 Gastro-esophageal reflux disease without esophagitis; G62.9 Polyneuropathy, unspecified; R60.0 Localized edema; I25.10 Atherosclerotic heart disease of native coronary artery without angina pectoris; F32.9 Major depressive disorder, single episode, unspecified; E03.9 Hypothyroidism, unspecified; D64.9 Anemia, unspecified; Z82.49 Family history of ischemic heart disease and other diseases of the circulatory system; Z88.8 Allergy status to other drugs, medicaments and biological substances; Z98.890 Other specified postprocedural states; Z79.899 Other long term (current) drug therapy ==

== ENCOUNTER 2022-11-08 21:54 | Emergency (ER) | payer MEDICARE ==
[~2022-11-08] VITALS: Ht 182.8 cm; Wt 86.2 kg
== END 2022-11-08 23:53 | disposition home or self-care (01) ==
LOC: ED 21:54
DX: S60.222A Contusion of left hand, initial encounter (principal); S00.93XA Contusion of unspecified part of head, initial encounter; J44.9 Chronic obstructive pulmonary disease, unspecified; Z86.718 Personal history of other venous thrombosis and embolism; I50.9 Heart failure, unspecified; M19.90 Unspecified osteoarthritis, unspecified site; Z88.1 Allergy status to other antibiotic agents; Z88.8 Allergy status to other drugs, medicaments and biological substances; Z98.890 Other specified postprocedural states; Z98.49 Cataract extraction status, unspecified eye; W19.XXXA Unspecified fall, initial encounter; Y93.89 Activity, other specified; Y92.009 Unspecified place in unspecified non-institutional (private) residence as the place of occurrence of the external cause; Y99.8 Other external cause status

== ENCOUNTER → 2023-07-10 | Outpatient (CLI) | payer MEDICARE ==
[~2023-07-10] MED LIST changes: +ALDACTONE25 MG PO; +ATORVASTATIN CA40 M1 PO; +FERROUS SULFAT325 MG PO; +LEXAPRO10 MG PO; +POTASSIUM CHLO10 ME5 PO; +SYMBYAX 6-25 M1 EACH PO; +VITAMIN C1000 M5 PO; +VITAMIN D3125 MC1 PO; +ZYRTEC10 M2 PO
== END | disposition home or self-care (01) ==
LOC: RAD 10:40
PROVIDERS: ATTEND Nurse Practitioner Family
DX: J44.1 Chronic obstructive pulmonary disease with (acute) exacerbation (principal); R05.1 Acute cough; R06.2 Wheezing; J43.8 Other emphysema; Z99.81 Dependence on supplemental oxygen

== ENCOUNTER → 2023-11-19 | Outpatient (CLI) | payer MEDICARE ==
[~2023-11-19] MED LIST changes: +ALBUTEROL S5 MG/1 ML INH; +LEVOTHYROXINE25 MCG PO; +PLAVIX75 M1 PO; +SYMB160 INH
== END | disposition home or self-care (01) ==
LOC: RESCLI 01:35
PROVIDERS: ATTEND Family Medicine
DX: I48.19 Other persistent atrial fibrillation (principal); R26.2 Difficulty in walking, not elsewhere classified; J44.1 Chronic obstructive pulmonary disease with (acute) exacerbation; E55.9 Vitamin D deficiency, unspecified; J30.2 Other seasonal allergic rhinitis; R60.0 Localized edema; K21.9 Gastro-esophageal reflux disease without esophagitis; I25.10 Atherosclerotic heart disease of native coronary artery without angina pectoris; F32.9 Major depressive disorder, single episode, unspecified; G62.9 Polyneuropathy, unspecified; E03.9 Hypothyroidism, unspecified; Z79.899 Other long term (current) drug therapy; Z88.8 Allergy status to other drugs, medicaments and biological substances; Z98.890 Other specified postprocedural states

== ENCOUNTER 2024-01-10 12:50 | Emergency (ER) | payer MEDICARE ==
[~2024-01-10] VITALS: Ht 182.8 cm; Wt 90.7 kg
[2024-01-10] MEDS ORDERED: Tdap Vaccine 0.5 ML SYR (Adult Vaccine) IM ONE (13:10)
[2024-01-10] MEDS ORDERED: Bacitracin Zinc 14 GM TUBE T ONE (13:10)
[2024-01-10] MEDS ORDERED: CEPHALEXIN500 M1 PO (15:43)
== END 2024-01-10 16:00 | disposition home or self-care (01) ==
LOC: ED 12:50
DX: S00.83XA Contusion of other part of head, initial encounter (principal); S50.812A Abrasion of left forearm, initial encounter; J44.9 Chronic obstructive pulmonary disease, unspecified; D64.9 Anemia, unspecified; K21.9 Gastro-esophageal reflux disease without esophagitis; M10.9 Gout, unspecified; I48.91 Unspecified atrial fibrillation; I11.0 Hypertensive heart disease with heart failure; I50.9 Heart failure, unspecified; Z86.73 Personal history of transient ischemic attack (TIA), and cerebral infarction without residual deficits; M19.90 Unspecified osteoarthritis, unspecified site; F17.210 Nicotine dependence, cigarettes, uncomplicated; Z88.8 Allergy status to other drugs, medicaments and biological substances; Z98.890 Other specified postprocedural states; Z95.5 Presence of coronary angioplasty implant and graft; W01.0XXA Fall on same level from slipping, tripping and stumbling without subsequent striking against object, initial encounter; Y93.89 Activity, other specified; Y92.89 Other specified places as the place of occurrence of the external cause; Y99.8 Other external cause status

== ENCOUNTER 2024-03-02 16:57 | Emergency (ER) | payer MEDICARE ==
[~2024-03-02] VITALS: Ht 182.8 cm; Wt 90.7 kg
[~2024-03-02 16:57] MED LIST changes: +CEPHALEXIN500 M1 PO
== END 2024-03-02 19:34 | disposition home or self-care (01) ==
LOC: ED 16:57
DX: R04.0 Epistaxis (principal); J44.9 Chronic obstructive pulmonary disease, unspecified; I50.9 Heart failure, unspecified; I48.91 Unspecified atrial fibrillation; Z86.73 Personal history of transient ischemic attack (TIA), and cerebral infarction without residual deficits; F17.210 Nicotine dependence, cigarettes, uncomplicated; Z88.1 Allergy status to other antibiotic agents; Z88.8 Allergy status to other drugs, medicaments and biological substances; Z98.890 Other specified postprocedural states; Z95.5 Presence of coronary angioplasty implant and graft

== ENCOUNTER 2024-03-10 20:58 | Emergency (ER) | payer MEDICARE ==
[~2024-03-10] VITALS: Wt 86.2 kg
== END 2024-03-11 00:30 ==
LOC: ED 20:58
DX: I46.9 Cardiac arrest, cause unspecified (principal); J44.9 Chronic obstructive pulmonary disease, unspecified; I50.9 Heart failure, unspecified; Z86.73 Personal history of transient ischemic attack (TIA), and cerebral infarction without residual deficits; I48.91 Unspecified atrial fibrillation; F17.210 Nicotine dependence, cigarettes, uncomplicated; Z88.8 Allergy status to other drugs, medicaments and biological substances; Z88.1 Allergy status to other antibiotic agents; Z95.5 Presence of coronary angioplasty implant and graft; Z98.890 Other specified postprocedural states